=== PATIENT | male | born 1975 | race Caucasian/White ===

== ENCOUNTER 2024-08-21 09:03 | Outpatient (CLI) | payer OTHER | END 2024-08-21 09:04 | disposition home or self-care (01) | LOC: SCSMRI 09:03 | PROVIDERS: ATTEND Family Medicine | DX: S89.92XD Unspecified injury of left lower leg, subsequent encounter (principal); S83.242D Other tear of medial meniscus, current injury, left knee, subsequent encounter; S80.02XD Contusion of left knee, subsequent encounter | CPT/HCPCS: 70210 ==

== ENCOUNTER 2025-06-01 00:54 | Emergency (ER) | payer SELFPAY ==
[2025-06-01] MEDS ORDERED: Etomidate 40 MG (20 mL) VIAL ONE (01:36)
[2025-06-01] MEDS ORDERED: KETAMINE 100 MG/ML (5ML VIAL) ONE (01:36)
[2025-06-01] MEDS ORDERED: Rocuronium Bromide 10 MG/ML (10ML VIAL) ONE (01:37)
[2025-06-01] MEDS ORDERED: Glycopyrrolate 0.4 MG/ 2 ML VIAL SLOW IVP SCH (01:45)
[2025-06-01 02:04] LABS: Actual Bicarbonate (HCO3a) 23.4 mEq/L (22-28); Analyzer IN Cardio ER; Base Excess (BEa) -0.6 mEq/L (-2.0 to +3.0); CO2 Tension 36.1 mmHg (35.0-45.0); Calcium, Ionized (arterial) 1.21 mmol/L (1.12-1.30); Hematocrit-ABG 37 % (42.0-52.0); Hemoglobin (Hb) 12.5 g/dL (14.0-18.0); O2 Tension (PaO2), arterial 388.6 mmHg (80.0-100.0); pH, Arterial 7.429 (7.35-7.45)
[2025-06-01 02:06] LABS: ALV-art Gradient -77.225 mmHg (0-20); Potassium - ABG Lab 2.63 mmol/L (3.70-5.30); Puncture Site Left Radial artery
[2025-06-01] MEDS ORDERED: Tranexamic Acid 1,000 MG/10 ML VIAL ONE (02:08)
[2025-06-01 02:27] LABS: Acetaminophen Less than 10 mcg/mL (Less than 10); Lipase 24 U/L (8-78); Magnesium 2.7 mg/dL (1.6-2.6); Salicylate Less than 8.0 mg/dL (Less than 8.0)
[2025-06-01 02:29] LABS: #Basophils Less than 0.03 10x3/uL (0.0-0.2); #Eosinophils Less than 0.03 10x3/uL (0.0-0.7); #Monocytes 0.76 10x3/uL (0.11-0.59); #Neutrophils 10.42 10x3/uL (1.40-6.50); %Basophils 0.2 % (0.0-1.0); %Eosinophils 0.0 % (0.0-10.0); %Lymphocytes 1.8 % (21.0-51.0); %Monocytes 6.6 % (0.0-10.0); %Neutrophils 90.9 % (42.0-75.0); ALT (SGPT) 90 U/L (Less than 45); AST (SGOT) 211 U/L (11-34); Albumin 4.0 g/dL (3.1-4.5); Alkaline Phosphatase 110 U/L (40-110); Anion Gap 24 mmol/L (10-20); BUN (Urea Nitrogen) 27 mg/dL (8.4-25.7); Bilirubin, Total 7.7 mg/dL (0.3-1.2); CK (CPK) 626 U/L (30-200); Calc. Creatinine Clearance 0 mL/min (70-130); Calcium 9.9 mg/dL (7.8-10.44); Carbon Dioxide 21 mmol/L (22-29); Chloride 101 mmol/L (98-107); Globulin 2.9 g/dL (2.4-3.5); Glucose 214 mg/dL (70-105); Hematocrit 39.2 % (42.0-52.0); Hemoglobin 13.1 g/dL (14.0-18.0); Mean Corpuscular Hemoglobin 32.6 pg (27.0-31.0); Mean Corpuscular Volume 97.5 fL (78.0-98.0); Platelet Count 98 10x3/uL (130-400); Potassium 2.9 mmol/L (3.5-5.1); Red Blood Cell (RBC) Count 4.02 mill/uL (4.70-6.10); Sodium 143 mmol/L (136-145); White Blood Cell (WBC) Count 11.47 10x3/uL (4.8-10.8)
[2025-06-01] MEDS ORDERED: Potassium Chloride 20 MEQ (100 mL) BAG ONE (02:52)
[2025-06-01 03:16] LABS: Cocaine Metabolite Screen Negative (Negative); THC/Cannabinoid Screen Negative (Negative); Tricyclic Screen Negative (Negative)
[2025-06-01 03:17] LABS: INR-International Normal Ratio 1.3; PTT 33.1 sec (22.9-36.1); Prothrombin Time 16.6 sec (12.0-14.7)
[2025-06-01 04:06] LABS: Anisocytosis SLIGHT = 6-15 cells HPF (0-5); Macrocytosis SLIGHT = 6-15 cells HPF (0-5); Platelet Adequacy Comment Platelets Decreased; Polychromasia SLIGHT = 2-3 cells HPF (0-2)
[2025-06-01 05:08] LABS: Bacteria/HPF None Seen HPF (None Seen); CAUTI Indications for Culture Alt mental st,lethar; Glucose, Urine (Dipstick) 50 mg/dL (Negative); Leukocyte Negative Leu/uL (Negative); Protein, Urine (Dipstick) 200 mg/dL (Neg-Trace); RBC/HPF 0-3 HPF (0-3); Specific Gravity, Urine 1.027 (1.002-1.036)
[2025-06-01 05:18] LABS: Urine Culture Reflex Yes Yes
== END 2025-06-01 03:32 | disposition short-term general hospital (02) ==
LOC: ERS 00:54
DX: J96.01 Acute respiratory failure with hypoxia (principal); S01.512A Laceration without foreign body of oral cavity, initial encounter; W18.11XA Fall from or off toilet without subsequent striking against object, initial encounter; Y92.59 Other trade areas as the place of occurrence of the external cause
CPT/HCPCS: 31500; 36430; 36600; 71045; 74018; 80053; 80306; 80307; 81001; 82550; 82805; 83690; 83735; 84484; 85025; 85610; 85730; 86850; 86900; 86901; 87086; 93005; 94002; 96365; 96366; 96367; 96375; J2250; J3480; P9016; P9048